=== PATIENT | female | born 2000 | race Two or more races ===

== ENCOUNTER 2023-12-28 11:04 | Outpatient (CLI) | payer OTHER ==
--- NOTE | 2023-12-28 14:28 | MRI Report ---
PROCEDURE: Hip LT WO INDICATIONS: LEFT HIP PAIN TECHNIQUE: Noncontrast coronal T1 spin echo and STIR through the bony pelvis. Coronal and axial T2 fast spin ec ho with fat saturation, sagittal T1 spin echo, and oblique axial T2 fast spin echo with fat saturatio n through the hip. COMPARISON: None. FINDINGS: Image quality: Excellent. Bones and joints: Bone marrow of the pelvic ring and proximal femurs show normal signal throughout. No intraosseous lesions or fractures. No avascular necrosis of the femoral heads. The visualized l ower lumbar spine appears normally aligned. Tendons: The gluteus medius and minimus tendons appear intact, without associated muscle atrophy. T he iliopsoas tendon appears intact, without adjacent bursal fluid collections. The origin of the ham string tendon is intact at the ischial tuberosity. Labrum and cartilage: Linear high T2 signal traverses the anterosuperior left hip labrum. Cartilage s urface of the femoral head appears of normal thickness. The alpha angle of the femur is within mushtaq l limits at less than 55 degrees. Soft tissues: Visualized muscles demonstrate normal bulk and internal signal. The proximal sciatic neurovascular bundle appears normal adjacent to the hamstring tendons. No free pelvic fluid. Bladde r wall thickness is normal. Incompletely visualized left ovarian cyst measuring 34 mm. Genitourinary structures and bowel loops appear normal where visualized. IMPRESSION: 1. Subtle anterosuperior left hip labral tear. Reviewed by: Greyson Underwood MD on 12/28/2023 2:27 PM PDT Approved by: Greyson Underwood MD on 12/28/2023 2:27 PM PDT Station ID: [id number]
== END 2023-12-28 11:05 | disposition home or self-care (01) ==
LOC: DI 11:04
PROVIDERS: ATTEND Orthopaedic Surgery
DX: S73.192A Other sprain of left hip, initial encounter (principal)